=== PATIENT | female | born 1990 | race Caucasian/White ===

== ENCOUNTER 2019-09-07 14:30 | Outpatient (RCR) | payer OTHER, MEDICAID, SELFPAY | END 2019-09-07 23:59 | disposition home or self-care (01) | LOC: DC 14:30 | PROVIDERS: Visit Provider Advanced Practice Midwife | DX: Z71.3 Dietary counseling and surveillance (principal); O24.419 Gestational diabetes mellitus in pregnancy, unspecified control; Z3A.00 Weeks of gestation of pregnancy not specified | CPT/HCPCS: 97802; G0108 ==

== ENCOUNTER 2019-09-25 06:00 | Inpatient (IN) | payer MEDICAID, SELFPAY ==
[2019-09-25] VITALS (48 sets, daily range): BP systolic 120–187; BP diastolic 61–119; PULSE 72–131; TEMP 36.4–37.8; O2SAT 81–99; BMI 31.2
[2019-09-25] MEDS: Lactated Ringers 500 ML 999 ML IV (06:26)
[2019-09-25 06:34] LABS: Absolute Lymphocyte Count 1.91 X10^3/uL (0.83-4.51); Absolute Neutrophil Count 11.6 X10^3/uL (2.0-7.7); Basophil# 0.02 X10^3/uL; Basophil% 0.1 % (0-1); Hematocrit 36.1 % (37-47); Hemoglobin 11.8 g/dL (12.0-15.0); Lymphocyte # 1.91 X10^3/ul (4.0); Lymphocyte % 13.1 % (19-41); Mean Corp Hgb Conc 32.7 g/dL (32-36); Mean Corpuscular Hgb 29.3 pg (27.0-32.0); Mean Corpuscular Volume 89.6 fL (81-99); Mean Platelet Vol. 10.4 fl (6.2-12.0); Monocyte# 0.89 X10^3/uL; Monocyte% 6.1 % (0-10); NRBC Flagged by Analyzer 0 % (0-5); Neutrophil # 11.59 X10^3/uL (2.7-7.7); Neutrophil % 79.8 % (47-70); Platelet Count 205 K/mm3 (150-450); RBC Distribution Width CV 12.8 % (11.6-14.6); Red Blood Count 4.03 M/mm3 (4.2-5.4); White Blood Count 14.5 K/mm3 (4.4-11.0)
[2019-09-25 06:40] LABS: Bedside Glucose 99 mg/dL (70-110)
[2019-09-25] MEDS: Lactated Ringers 1,000 ML 200 ML IV ×3 (06:56→16:56)
[2019-09-25] MEDS: fentaNYL-bupivacaine (epidural) 100 ML BAG EPIDURAL ×3 (07:35→16:57)
[2019-09-25 07:45] LABS: Bedside Glucose 104 mg/dL (70-110)
[2019-09-25 08:02] LABS: Probe Check PASS; Specimen Processing Control PASS
[2019-09-25 08:56] LABS: Bedside Glucose 101 mg/dL (70-110)
[2019-09-25 10:56] LABS: Bedside Glucose 94 mg/dL (70-110)
[2019-09-25 10:56] LABS: Bedside Glucose 87 mg/dL (70-110)
--- NOTE | 2019-09-25 11:45 | PCM.HP.OB ---
History Date of Admission: 09/25/19 Final CLINT[place]: 10/09/19 Gestational age: 38 Weeks and 0 Days History of this : This is a 29 year-old, G [], P [], at 38 weeks gestational age. Medical History: Medical History (Last Updated 09/25/19 @ 11:[address] Andrei Le MD) Exercise-induced asthma J45.990 Allergies No Known Allergies Allergy (Verified 09/25/19 05:52) Home Medications: Home Medications Albuterol Inhaler [Ventolin Hfa (SP)] 2 puff INHALATION Q4H PRN PRN 09/25/19 Pnv No.95/Ferrous Fum/Folic AC [ Caplet] 1 ea PO DAILY 09/25/19 Smoking Status: Never smoker Alcohol: None Number of Fetus(es): 1 NST - FHR Rate Baby A Baseline: 135 Variability:: Minimal, Moderate Accelerations:: 15 x 15 Decelerations:: None History Past Pregnancies: Past Pregnancies Delivery Date Name GA/ Weeks Outcome Route Wt Infant Sex Labor Length Anesthesia Delivery Location Provider FOB Labs: See [facility] H[facility]P Physical Exam Vitals: Vital Signs Temp Pulse BP Pulse Ox 98.6 F 100 141/99 H 99 09/25/19 09:40 09/25/19 11:34 09/25/19 11:34 09/25/19 10:45 General: Alert, Oriented x3 Abdomen: Soft, Non Tender, Non-Distended, Gravid Estimated gestational size: Appropriate for gestational size Presentation: Cephalic Cervix Dilation (cm): 9 - AROM clear fluid Station: 0 Effacement (%): 90 Assessment/Plan This is a 29 year-old, G1, P0, at 38 weeks gestational age. Admit to L&D GBS positive - pcn per protocol Pain - epidural COVID negative EFW - less than 4500g, patient with adequate pelvis GDM - check BS per protocol Routine care
[2019-09-25 11:46] LABS: Hematocrit 33.9 % (37-47); Mean Corp Hgb Conc 32.4 g/dL (32-36); Mean Corpuscular Hgb 29.7 pg (27.0-32.0); Mean Corpuscular Volume 91.6 fL (81-99); Platelet Count 179 K/mm3 (150-450); RBC Distribution Width CV 13.2 % (11.6-14.6); RBC Distribution Width SD 43.2 fl (35.1-43.9); White Blood Count 14.2 K/mm3 (4.4-11.0)
[2019-09-25 11:56] LABS: Prothrombin Time (Protime)PT. 12.7 SECONDS (11.7-14.9)
[2019-09-25 11:57] LABS: Partial Thromboplast Time 23.8 Seconds (24.1-36.2)
[2019-09-25 12:01] LABS: AST(SGOT) 13 U/L (15-37); Alanine Aminotransfer ALT/SGPT 18 U/L (13-56); Creatinine, Serum 0.83 mg/dL (0.55-1.02); EST Glomerular Filtration Rate 87 mL/min (>60); Est Glom Filt Rate - Afr Amer 105 mL/min (>60); Uric Acid 6.6 mg/dL (2.6-6.0)
[2019-09-25 12:11] LABS: Protein, Urine (Random) 41.1 mg/dL (<11.9); Protein:Creat Ratio 476 mg/g CRE (0-200)
[2019-09-25 13:30] LABS: Bedside Glucose 72 mg/dL (70-110)
[2019-09-25 14:41] LABS: Bedside Glucose 99 mg/dL (70-110)
--- NOTE | 2019-09-25 15:31 | PCM.OPRPT ---
Vaginal Delivery Maternal Presentation: Active Labor Method of Induction: Pitocin - augmentation Amniotic Membrane Rupture Type: Artificial Amniotic Fluid Description: Clear Final CLINTON: 10/09/19 Gestational age: 38 Weeks and 0 Days Date of Procedure: 09/25/19 Pre-Operative Diagnosis: (1) Labor (2) Maternal exhaustion Post-Operative Diagnosis: Same Surgery/ Procedure Performed: Vacuum Assisted Vaginal Delivery Type of Anesthesia: Epidural Description of Procedure: Starting pushing with patient when she was C/C/+2. Patient had been pushing for over 3 hours. She was noted to make steady progress. After additional pushing she was prepped & draped in stirrups. Once patient had been pushing for 5 hours and made further progress (to +3 with push) she was noted to be exhausted. Patient was counseled on R/B/A and decision was made to use the vacuum. head position had been previously assessed. Vacuum placed on head & position confirmed. Gentle traction placed on vacuum & with maternal push there was descent. This was repeated 2 more times (in between contractions pressure was decreased) with 1 pop off. descent was noted with each pull. A tight perineal band was noted to be impeding delivery thus a 2nd degree episiotomy cut. The vacuum was replaced & position confirmed. With 1 additional pull the head delivered and thus vacuum released. Patient pushed to deliver the head. Shoulders gently guided to allow delivery of anterior and posterior shoulders. No excess traction placed on head. Body delivered & placed on maternal abdomen. 3VC clamped & cut in delayed fashion. Placenta delivered with gentle traction (and manual removal of additional placental membranes) & good uterine tone obtained. Manual exploration of the uterus confirmed no retained placenta. Presentation: CLAUS Placental Delivery Description: Expressed - additional membranes manually removed Placenta Disposition: [facility] Cord Vessel Description: 3 Vessels Cord Gases drawn per routine: ABG, VBG Cord Entanglement: None Estimated Blood Loss: 400ml Infant A gender: Male - Jaylen (1 minute): 7 (5 minute): 8 Episiotomy Description: 2nd degree - perineal - repaired with 3-0 vicryl Laceration: None Medications given after delivery: IV Pitocin Complications: None
[2019-09-25] MEDS: Oxytocin 30 units/NS 500 ml 30 UNITS/500 ML IV.SOLN IV (16:40)
[2019-09-25 17:41] LABS: Bedside Glucose 75 mg/dL (70-110)
[2019-09-25 17:41] LABS: Bedside Glucose 89 mg/dL (70-110)
[2019-09-25 19:31] LABS: Bedside Glucose 80 mg/dL (70-110)
[2019-09-25 19:31] LABS: Bedside Glucose 83 mg/dL (70-110)
[2019-09-25] MEDS: Oxytocin 30 units/NS 500 ml 30 UNITS/500 ML IV.SOLN 334 UNITS IV (20:15)
[2019-09-25 22:01] LABS: Bedside Glucose 85 mg/dL (70-110)
[2019-09-25 22:01] LABS: Bedside Glucose 84 mg/dL (70-110)
[2019-09-26] VITALS (11 sets, daily range): BP systolic 128–145; BP diastolic 78–92; PULSE 88–130; RESP 16–18; TEMP 36.5–37.1; O2SAT 98
[2019-09-26 06:45] LABS: Bedside Glucose 85 mg/dL (70-110)
--- NOTE | 2019-09-26 08:20 | PCM.PN.BLA ---
Progress Note Rounding on unit and attempted to see patient at bedside. Patient sleeping sound and did not awaken. Spoke with nursing and fasting BS today was 85. No concerns to report at this time. Will attempt to see patient later today.
[2019-09-26] MEDS: Ibuprofen 600 MG Tablet PO (09:31)
--- NOTE | 2019-09-26 18:50 | NURSING ---
Patient declined MMR vaccination during this hospital stay.
--- NOTE | 2019-09-26 19:31 | PCM.PN.OB ---
Subjective: Patient seen at bedside. Continues to sleep throughout the day. Stated feeling sore but no major pain. Lochia is decreasing. Up ambulating in room and voiding without difficultly. infant. Desires discharge home tomorrow. Objective: Blood pressures today were as followed: 128/86 and 131/92 Patient denies any headaches, vision changes or RUQ pain - Physical Exam Vitals/I&O's: Vital Signs Temp Pulse Resp BP Pulse Ox 97.7 F L 88 16 128/86 H 98 09/26/19 16:00 09/26/19 16:00 09/26/19 16:00 09/26/19 16:00 09/26/19 12:34 Oxygen Delivery Method Room Air Weight: 205 lb 11.06 oz Body Mass Index (BMI) 31.2 Intake and Output for Last 24 Hours 09/24/19 09/25/19 09/26/19 23:59 23:59 23:59 Intake Total 4667.79 / 4667.79 Output Total 1450 / 1450 800 / 800 Balance 3217.79 / 3217.79 -800 / -800 General: Alert Lungs: Normal air movement Cardiovascular: Regular rate Abdomen: Soft, Non Tender Lymphatic: No Cervical, Supraclavicular, or Inguinal Adenopathy Neurological: Cranial nerves II-XII grossly intact Psych/Mental Status: Normal Affect Laboratory Results 09/25/19 17:40: POC Glucose 83 09/25/19 18:37: POC Glucose 80 09/25/19 19:47: POC Glucose 84 09/25/19 21:11: POC Glucose 85 09/26/19 06:39: POC Glucose 85 Current Medications Acetaminophen (Tylenol) 1,000 mg PO Q8H PRN PRN PRN Reason: Pain Score 1-3/10 Bisacodyl (Dulcolax) 10 mg RECTAL UD PRN PRN Reason: If no BM Dibucaine (Dibucaine) 1 applic TOPICAL TID PRN PRN; Protocol PRN Reason: Discomfort Hydrocortisone (Hytone) 1 applic TOPICAL TID PRN PRN; Protocol PRN Reason: Discomfort Ibuprofen (Motrin) 600 mg PO Q6H PRN PRN PRN Reason: Pain Score 1-3/10 Last Admin: 09/26/19 09:31 Dose: 600 mg Documented by: Methylergonovine Maleate (Methergine) 0.2 mg IM X1 PRN PRN Reason: Excess bleeding/uterine atony Ondansetron HCl (Zofran) 4 mg IV Q4H PRN PRN PRN Reason: Nausea Oxycodone HCl (Oxyir) 5 - 10 mg PO Q4H PRN PRN PRN Reason: Pain Score 4-10/10 Senna/Docusate Sodium (Senokot-S, Altagracia-Colace) 1 - 2 tablet PO DAILY PRN PRN PRN Reason: Constipation Simethicone (Mylicon) 80 mg PO PCHS PRN PRN Reason: Indigestion/Stomach pain Sodium Chloride () 5 - 15 ml IV UD PRN PRN Reason: SALINE FLUSH Medical Necessity - Tobacco Use Smoking Status: Never smoker Assessment/Plan PPD #1 Routine care Pain management Anticipate discharge home tomorrow- Told patient she will need to follow up in office in 1 week for BP check.
[2019-09-27] VITALS (16 sets, daily range): BP systolic 109–147; BP diastolic 59–103; PULSE 65–137; RESP 16–18; TEMP 36.4–36.8; O2SAT 81–99
--- NOTE | 2019-09-27 07:49 | PCM.PN.OB ---
Subjective: Pain well controlled. Mild headache. Tired. Tolerating regular diet. Has had a bowel movement and is urinating without difficulty. - Physical Exam Vitals/I&O's: Vital Signs Temp Pulse Resp BP Pulse Ox 97.7 F L 90 18 133/96 H 98 09/27/19 02:40 09/27/19 02:46 09/27/19 02:40 09/27/19 02:46 09/26/19 19:38 Oxygen Delivery Method Room Air Weight: 93.3 kg Body Mass Index (BMI) 31.2 Intake and Output for Last 24 Hours 09/25/19 09/26/19 09/27/19 23:59 23:59 23:59 Intake Total 4667.79 / 4667.79 Output Total 1450 / 1450 800 / 800 Balance 3217.79 / 3217.79 -800 / -800 General: Alert, Cooperative, No apparent distress Extremities: Edema - 1+ Neurological: - - no clonus, 2+DTRs Current Medications Acetaminophen (Tylenol) 1,000 mg PO Q8H PRN PRN PRN Reason: Pain Score 1-3/10 Bisacodyl (Dulcolax) 10 mg RECTAL UD PRN PRN Reason: If no BM Dibucaine (Dibucaine) 1 applic TOPICAL TID PRN PRN; Protocol PRN Reason: Discomfort Hydrocortisone (Hytone) 1 applic TOPICAL TID PRN PRN; Protocol PRN Reason: Discomfort Ibuprofen (Motrin) 600 mg PO Q6H PRN PRN PRN Reason: Pain Score 1-3/10 Last Admin: 09/26/19 09:31 Dose: 600 mg Documented by: Methylergonovine Maleate (Methergine) 0.2 mg IM X1 PRN PRN Reason: Excess bleeding/uterine atony Ondansetron HCl (Zofran) 4 mg IV Q4H PRN PRN PRN Reason: Nausea Oxycodone HCl (Oxyir) 5 - 10 mg PO Q4H PRN PRN PRN Reason: Pain Score 4-10/10 Senna/Docusate Sodium (Senokot-S, Altagracia-Colace) 1 - 2 tablet PO DAILY PRN PRN PRN Reason: Constipation Simethicone (Mylicon) 80 mg PO PCHS PRN PRN Reason: Indigestion/Stomach pain Sodium Chloride () 5 - 15 ml IV UD PRN PRN Reason: SALINE FLUSH Medical Necessity - Tobacco Use Smoking Status: Never smoker Assessment/Plan day #2 status post vaginal delivery. Working on breast-feeding. You work on this today. is otherwise doing well. Patient will likely be discharged today. Mild headache, likely from fatigue. Blood pressures are mildly elevated as well. Will repeat preeclampsia labs and monitor blood pressures today.
--- NOTE | 2019-09-27 07:53 | DCINST_ITS ---
Discharge Diet: No Restrictions Discharge Activity: Return to Normal Activity, May not drive while taking narcotic pain medications., May Shower May shower in (days): 0 May resume sexual activity in: 4-6 weeks Additional Activity Instructions:: Nothing in the vagina for 4-6 weeks. You may return to work/school in 6 weeks. Call your doctor if your incision/area has: Continuous Slow Oozing, Sudden Increased Bleeding, Increased Pain/ Swelling, Increased Redness, Foul Smelling Discharge Additional Instructions: If you experience any of the following, contact your healthcare provider. * Bleeding that soaks a pad every hour for 2 hours * Fever 100.4 or higher * Unrelieved incision or abdominal pain * Swelling, redness, discharge or bleeding from your incision or episiotomy site * Your incision begins to separate * Problems urinating (including inability to urinate or burning while urinating). * Visual changes * Severe headache * Flu-like symptoms * Pain or redness in one of both of your breasts * Pain, warmth, tenderness or swelling in your legs, especially the calf area * Frequent nausea and vomiting * Symptoms of depression or anxiety If you experience any of the following, call 911 or go to the nearest Emergency Room. * Chest pain * Problems breathing * Seizure activity * Partial or complete paralysis of a body part, slurred speech, weakness or drooping of the face, or a sudden inability to walk or hold your balance Allergies/Adverse Reactions: Allergies No Known Allergies Allergy (Verified 09/25/19 05:52) Medications to take at Discharge Albuterol Inhaler [Ventolin Hfa (SP)] 2 puff INHALATION Q4H PRN PRN 09/25/19 Pnv No.95/Ferrous Fum/Folic AC [ Caplet] 1 ea PO DAILY 09/25/19 Please Follow Up With: Andrei Le MD - [phone] When: Call to make an appointment with your doctor's office in 1-2 and 6 weeks or as needed Test Results: Test results from this visit will be discussed in further detail at your follow- up appointment, if applicable.
--- NOTE | 2019-09-27 07:53 | PCM.DCVAG ---
Discharge Diet: No Restrictions Discharge Activity: Return to Normal Activity, May not drive while taking narcotic pain medications., May Shower May shower in (days): 0 May resume sexual activity in: 4-6 weeks Additional Activity Instructions:: Nothing in the vagina for 4-6 weeks. You may return to work/school in 6 weeks. Call your doctor if your incision/area has: Continuous Slow Oozing, Sudden Increased Bleeding, Increased Pain/ Swelling, Increased Redness, Foul Smelling Discharge Additional Instructions: If you experience any of the following, contact your healthcare provider. Bleeding that soaks a pad every hour for 2 hours Fever 100.4 or higher Unrelieved incision or abdominal pain Swelling, redness, discharge or bleeding from your incision or episiotomy site Your incision begins to separate Problems urinating (including inability to urinate or burning while urinating). Visual changes Severe headache Flu-like symptoms Pain or redness in one of both of your breasts Pain, warmth, tenderness or swelling in your legs, especially the calf area Frequent nausea and vomiting Symptoms of depression or anxiety If you experience any of the following, call 911 or go to the nearest Emergency Room. Chest pain Problems breathing Seizure activity Partial or complete paralysis of a body part, slurred speech, weakness or drooping of the face, or a sudden inability to walk or hold your balance Allergies/Adverse Reactions: Allergies No Known Allergies Allergy (Verified 09/25/19 05:52) Medications to take at Discharge Albuterol Inhaler [Ventolin Hfa (SP)] 2 puff INHALATION Q4H PRN PRN 09/25/19 Pnv No.95/Ferrous Fum/Folic AC [ Caplet] 1 ea PO DAILY 09/25/19 Please Follow Up With: Andrei Le MD - [phone] When: Call to make an appointment with your doctor's office in 1-2 and 6 weeks or as needed Test Results: Test results from this visit will be discussed in further detail at your follow-up appointment, if applicable.
[2019-09-27 08:42] LABS: Hematocrit 33.5 % (37-47); Hemoglobin 10.6 g/dL (12.0-15.0); Mean Corp Hgb Conc 31.6 g/dL (32-36); Mean Corpuscular Volume 91.8 fL (81-99); Mean Platelet Vol. 10.2 fl (6.2-12.0); Platelet Count 161 K/mm3 (150-450); RBC Distribution Width CV 13.1 % (11.6-14.6); RBC Distribution Width SD 43.6 fl (35.1-43.9); Red Blood Count 3.65 M/mm3 (4.2-5.4); White Blood Count 11.2 K/mm3 (4.4-11.0)
[2019-09-27 08:54] LABS: ALB/GLOB Ratio 0.7 RATIO (0.9-2.4); AST(SGOT) 19 U/L (15-37); Alanine Aminotransfer ALT/SGPT 20 U/L (13-56); Albumin, Serum 2.4 g/dL (3.2-5.0); Alkaline Phosphatase 108 U/L (45-117); Anion Gap 3 (5-15); BUN 9 mg/dL (7-18); BUN/Creat Ratio 13.2 RATIO (10-20); Calcium,Total 8.3 mg/dL (8.5-10.1); Chloride 113 mmol/L (98-107); Creatinine, Serum 0.68 mg/dL (0.55-1.02); EST Glomerular Filtration Rate 109 mL/min (>60); Est Glom Filt Rate - Afr Amer 132 mL/min (>60); Estimated Creatinine Clearance 124.25 ml/min; Globulin 3.6 g/dL (2.2-4.2); Glucose 85 mg/dL (74-106); Sodium Level 141 mmol/L (136-145); Uric Acid 6.4 mg/dL (2.6-6.0)
[2019-09-27] MEDS: Labetalol 100 MG Tablet PO ×2 (11:42→21:45)
[2019-09-27] MEDS: Dibucaine 30 GM Tube 1 APPLIC TOPICAL (19:21)
[2019-09-28] VITALS (7 sets, daily range): BP systolic 137–158; BP diastolic 86–88; PULSE 81–96; RESP 12–16; TEMP 36.1–36.7; O2SAT 99
--- NOTE | 2019-09-28 08:43 | PCM.PN.OB ---
Subjective: Doing well per patient and nursing staff. Ambulating and taking PO without difficulty. Voiding and passing flatus. Pain controlled. Denies headache, visual changes, chest pain, shortness of breath, increased vaginal bleeding. Lochia normal. . Planning D/C home today. - Physical Exam Vitals/I&O's: Vital Signs Temp Pulse Resp BP Pulse Ox 97.0 F L 81 16 137/88 H 99 09/28/19 08:15 09/28/19 08:16 09/28/19 08:15 09/28/19 08:16 09/28/19 08:15 Oxygen Delivery Method Room Air Weight: 205 lb 11.06 oz Body Mass Index (BMI) 31.2 Intake and Output for Last 24 Hours 09/26/19 09/27/19 09/28/19 23:59 23:59 23:59 Output Total 800 / 800 Balance -800 / -800 General: Alert, Oriented x3, Cooperative HEENT: Atraumatic, Normocephalic Neck: Trachea Midline Lungs: Clear to auscultation, Normal air movement, No rhonchi, No wheeze Cardiovascular: Regular rate, Regular Rhythm, No murmurs Abdomen: Bowel Sounds Present, Soft - fundus firm 2 below U. Appropriately tender. Extremities: No edema - No clonus Neurological: Deep Tendon Reflexes 2+/4 and Symmetrical Psych/Mental Status: Normal Affect, Appropriate Laboratory Results 09/27/19 08:30: Sodium 141, Potassium 4.0, Chloride 113 H, Carbon Dioxide 25.0, Anion Gap 3 L, BUN 9, Creatinine 0.68, Estim Creat Clear Calc 124.25, Est GFR (MDRD) Af Amer 132, Est GFR (MDRD) Non-Af 109, BUN/Creatinine Ratio 13.2, Glucose 85, Uric Acid 6.4 H, Calcium 8.3 L, Total Bilirubin 0.20, AST 19, ALT 20, Alkaline Phosphatase 108, Total Protein 6.0 L, Albumin 2.4 L, Globulin 3.6, Albumin/Globulin Ratio 0.7 L Current Medications Acetaminophen (Tylenol) 1,000 mg PO Q8H PRN PRN PRN Reason: Pain Score 1-3/10 Albuterol Sulfate (Ventolin Aerosols) 2.5 mg INHALATION Q4H PRN PRN Reason: SOB/WHEEZING/ASTHMA Bisacodyl (Dulcolax) 10 mg RECTAL UD PRN PRN Reason: If no BM Dibucaine (Dibucaine) 1 applic TOPICAL TID PRN PRN; Protocol PRN Reason: Discomfort Last Admin: 09/27/19 19:21 Dose: 1 applicatio Documented by: Hydrocortisone (Hytone) 1 applic TOPICAL TID PRN PRN; Protocol PRN Reason: Discomfort Ibuprofen (Motrin) 600 mg PO Q6H PRN PRN PRN Reason: Pain Score 1-3/10 Last Admin: 09/26/19 09:31 Dose: 600 mg Documented by: Labetalol HCl (Trandate) 100 mg PO BID DM Last Admin: 09/27/19 21:45 Dose: 100 mg Documented by: Methylergonovine Maleate (Methergine) 0.2 mg IM X1 PRN PRN Reason: Excess bleeding/uterine atony Ondansetron HCl (Zofran) 4 mg IV Q4H PRN PRN PRN Reason: Nausea Oxycodone HCl (Oxyir) 5 - 10 mg PO Q4H PRN PRN PRN Reason: Pain Score 4-10/10 Multivit/Folic Acid/Iron (Prenatabs Fa) 1 tablet PO DAILY@1200 DM Last Admin: 09/27/19 11:39 Dose: Not Given Documented by: Senna/Docusate Sodium (Senokot-S, Altagracia-Colace) 1 - 2 tablet PO DAILY PRN PRN PRN Reason: Constipation Simethicone (Mylicon) 80 mg PO PCHS PRN PRN Reason: Indigestion/Stomach pain Sodium Chloride () 5 - 15 ml IV UD PRN PRN Reason: SALINE FLUSH Medical Necessity - Tobacco Use Smoking Status: Never smoker Assessment/Plan A:PPD #3 Second degree perineal laceration Preeclampsia GDM P: 1) Routine and instructions 2) Labetalol 100mg PO BID to continue. Preeclampsia signs and symptoms reviewed. 3) Follow up on 10/03/19 for BP check in office 4) Follow up in 6 weeks
[2019-09-28] MEDS: Labetalol 100 MG Tablet PO (10:21)
--- NOTE | 2019-09-28 13:00 | CASEMGMT ---
Social Work Assessment Labor and Delivery Unit Patient Address: [address] [place] [id number] Phone number: [phone] Date of Referral: 09/27/2019 Time of Referral: 1743 Referred By: Dr. Aleja Thompson Date of Intervention: 09/28/2019 Time of Intervention: 1300 Reason for Referral: Resources and support History obtained from: Medical records and mother of baby (MOB) Yvette Means; father of baby (FOB) Dallas Nagy also present. Household composition: MOB currently resides with her parents and brother. MOB reports home situation is safe and adequate. FOB currently resides in [place] with his mother and sibling. Goal is for MLB and baby to move out to [place] once FOB has things more settled out there with a residence and job situation. Patient's parent/guardian status: MAYRA is a 29-year-old single female involved with FOB a single -Filipino male for the last 7-1/2 years. No reports or indication of safety concerns in this relationship. MOB denied any history of abuse upon admission with nursing staff. [place] baby is the first child for both parents. Baby boy is to be named Jaylen Nagy, born on 09/25/2018. Medical History: MAYRA is after delivering Jaylen. care started at 9 weeks at [facility] and [facility]. MAYRA transferred care to [facility] at 32 weeks, due to moving to this area to live with her parents. Paolo was born at 38 weeks gestation. 7 pounds 11 ounces. Apgars 7 and 9 at 1 and 5 minutes of life respectively. MAYRA is planning on breast-feeding. 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 MAYRA is able to read, write, and to understand what is read. 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 MLB does plan to find a job after getting settled with the baby and likely after moving to [place]. FOB works in customer service. MOB parents do assist as needed. Infant Supplies: Parents report to have all needed supplies to take care of the baby including a safe sleep space and a car seat. MOB is breast-feeding baby. Childcare/Caregiver(s): MLB and FOB will be primary caregivers of . Transportation: Both parents drive, no identified issues with transportation. Programs/Agencies Involved: MAYRA has medical through job and family services. Information discussed about that and help me grow. Behavioral Health Issues: Mental Health History: MOB denies any depression or anxiety history. Substance Use History: MOB denies any history of substance abuse issues. FOB also denies the same. Family History: MOB denies any family history. Drug Screens: No drug screens noted for either mother or infant. Family/Social Stressors: MLB and FOB were planning to move to [place], but then COVID pandemic hit which prompted FOB to go to [facility] on his own and try to get situated before the baby was born. This prompted MAYRA to move in with her parents in the third trimester. So at this time parents are living apart, but are still together with the ultimate plan of mom and baby moving out to [place]. Support Systems: FOB. MOB mother Dorota is also a big support and will be able to help MLB with the transition into parenthood. Depression/Shaken Baby/Safe Sleeping information provided to parents on safe sleeping, shaking baby prevention, and depression and anxiety. ASSESSMENT: Met with MOB and FOB together. FOB holding baby to chest for the duration of social work's visit. FOB was gentle and calm with baby appearing appropriate and how handling the baby. MOB and FOB both pleasant and cooperative, both held good eye contact. MOB's affect constricted, though MOB did smile at appropriate times. MOB and FOB reported to have all needed supplies for the baby, and have an adequate support system in place to help with transition parenthood. MOB and FOB accepted information on depression and anxiety. Parents also accepted awaiting [facility] resource list of social service agencies that may be beneficial and helpful to new parents. MOB is not interested in help me grow referral at this time but did accept information. No identified concerns by nursing regarding parent-child interactions. FOB. Engaged with care of baby at this time. Noted on will be to look over at baby intermittently through social work visit. PLAN: MOB and baby to discharge home later this evening. depression resources provided as well as online County resource list. No other services requested or indicated. -MARIANNE Bagley, C SOFTWARE ENGINEER
== END 2019-09-28 14:00 | disposition home or self-care (01) | DRG 560 ==
LOC: WPOUT 06:17 → WP 06:17
PROVIDERS: Obstetrics & Gynecology; Admitting Provider Obstetrics & Gynecology; Referring Provider Obstetrics & Gynecology; Visit Provider Obstetrics & Gynecology
DX: O75.81 Maternal exhaustion complicating labor and delivery (principal); O70.1 Second degree perineal laceration during delivery; O14.95 Unspecified pre-eclampsia, complicating the puerperium; O99.824 Streptococcus B carrier state complicating childbirth; O99.52 Diseases of the respiratory system complicating childbirth; J45.990 Exercise induced bronchospasm; Z3A.38 38 weeks gestation of pregnancy; Z37.0 Single live birth
CPT/HCPCS: 59025; 59050; 80053; 82565; 82570; 82962; 84156; 84450; 84460; 84550; 85025; 85027; 85610; 85730; 86850; 86900; 86901; 87635; 99218; G2023; J7120; G0378; U0003